=== PATIENT | female | born 1970 | race Two or more races ===

== ENCOUNTER 2016-11-14 18:38 | Inpatient (IN) | payer MEDICAID ==
[~2016-11-14] VITALS: Ht 152.4 cm; Wt 50.4 kg
[2016-11-14 20:53] LABS: HCG UR OBC PASS
[2016-11-14] MEDS ORDERED: ALBUTEROL SULFATE 2.5 MG/3 ML ONE (21:21)
[2016-11-14 21:29] LABS: HEMOGLOBIN 14.2 g/dL (11.7-16.4); WHITE BLOOD COUNT 8.9 x10^3/uL (3.4-10)
[2016-11-14] MEDS ORDERED: ALBUTEROL 0.5%, 20ML NPPB SCH (21:30)
[2016-11-14] MEDS ORDERED: SODIUM CHLORIDE 0.9% 1,000ML IVBOLUS ONE (21:30)
[2016-11-14] MEDS ORDERED: methylPREDNISolone SOD SUCC 125 MG/2 ML IVP ONE (21:30)
[2016-11-14 21:37] LABS: ASPARTATE AMINO TRANSFERASE 15 U/L (15-37); BLOOD UREA NITROGEN 10 mg/dL (7-18)
[2016-11-14] MEDS ORDERED: OMNIPAQUE 350 MG/ML, 100ML BOTTLE ONE (21:39)
[2016-11-14] MEDS ORDERED: ESOM20CA PO (23:07)
[2016-11-14] MEDS ORDERED: SODIUM CHLORIDE 0.9% 1,000 ML IV ONE (23:26)
[2016-11-14] MEDS ORDERED: MORPHINE SULFATE 4 MG/ML, 1ML IVPush PRN (23:30)
[2016-11-14] MEDS ORDERED: ONDANSETRON 2MG/ML, 2ML IVPush PRN (23:30)
[2016-11-15 00:30] VITALS: BP 155/77
[2016-11-15 03:00] VITALS: BP 155/77
[2016-11-15] MEDS ORDERED: METOCLOPRAMIDE 5 MG/ML, 2ML IVPush ONE (05:00)
[2016-11-15] MEDS ORDERED: SODIUM CHLORIDE 0.9% 1,000 ML IV SCH (05:00)
[2016-11-15 08:36] VITALS: BP 122/76
[2016-11-15] MEDS ORDERED: PANTOPRAZOLE 40 MG IV IVPush SCH (09:00)
[2016-11-15 14:31] VITALS: BP 141/90
== END 2016-11-15 18:20 | disposition home or self-care (01) | DRG 390 ==
LOC: ED 23:39 → SUATTDRO 23:39 → EDIP 23:51 → 3NE 11-15 00:48
PROVIDERS: ADMIT Internal Medicine; ATTEND Internal Medicine
DX: K56.60 Unspecified intestinal obstruction (principal); K21.9 Gastro-esophageal reflux disease without esophagitis; K66.0 Peritoneal adhesions (postprocedural) (postinfection); K44.9 Diaphragmatic hernia without obstruction or gangrene; Z88.5 Allergy status to narcotic agent; Z90.49 Acquired absence of other specified parts of digestive tract; Z90.710 Acquired absence of both cervix and uterus
CPT/HCPCS: 36415; 74020; 74177; 80053; 81001; 81025; 83690; 85025; 93005; 99285; Q9967; C9113; J2765; J7030